=== PATIENT | male | born 1990 | race Caucasian/White ===

== ENCOUNTER → 2018-10-10 13:37 | Outpatient (CLI) | payer OTHER, SELFPAY ==
--- NOTE | 2018-10-10 | DI.MRI.S_ITS ---
PROCEDURE: MR KNEE LT WO CON INDICATIONS: LEFT KNEE INJURY TECHNIQUE: Noncontrast sagittal PD fast spin echo and T2 fast spin echo with fat saturation, sagittal 3-D FLASH with fat saturation; coronal T1 spin echo and PD fast spin echo with fat saturation, and axial PD fast spin echo with fat saturation through the knee. COMPARISON: None. FINDINGS: Image quality: Excellent. Menisci: The medial and lateral menisci demonstrate normal morphology and internal signal. The meniscal root ligaments appear intact. Cruciate ligaments: High-grade partial versus complete rupture of the anterior cruciate ligament. The posterior cruciate ligament appears intact. Medial structures: The medial collateral ligament appears intact. The posterior oblique ligament, semimembranosus tendon insertions, oblique popliteal ligament, and meniscocapsular junction appear intact. Visualized portions of the pes anserinus tendons appear normal. No abnormal bursal fluid. Lateral structures: The lateral collateral ligament, long and short heads of the biceps femoris tendon appear intact. The popliteus tendon appears normal; the popliteofibular ligament appears intact. The posterosuperior and anteroinferior popliteomeniscal fascicles appear intact. The arcuate and fabellofibular ligaments appear intact, on either side of the lateral inferior geniculate artery. Iliotibial band appears normal. Anterior structures: The quadriceps and patellar tendons appear intact. Patellar alignment is normal. No femoral trochlear dysplasia or ventral trochlear prominence. No edema in the infrapatellar fat pad. Bones and cartilage: Severe marrow contusions along the mid lateral femoral condyle, posterolateral and posteromedial tibial plateau The cartilage of the medial and lateral femorotibial compartments, as well as the patellofemoral compartment, appears normal in thickness. Joint space: Small Issa's cyst measuring approximately 3.0 cm in the cephalocaudad dimension. Moderate joint effusion. No definite loose bodies identified. IMPRESSION: Severe marrow contusions involving the lateral femoral condyle, posterolateral and posteromedial tibial plateau in keeping with pivot shift mechanism of injury. High-grade partial versus complete rupture of the anterior cruciate ligament. Issa's cyst. Moderate joint effusion Dictated by: Candido Ornelas M.D. on 10/10/2018 at 16:26 Approved by: Candido Ornelas M.D. on 10/10/2018 at 16:34
== END ==
DX: S80.02XA Contusion of left knee, initial encounter (principal); S83.512A Sprain of anterior cruciate ligament of left knee, initial encounter; M71.22 Synovial cyst of popliteal space [Baker], left knee; M25.462 Effusion, left knee
CPT/HCPCS: 73721

== ENCOUNTER 2024-10-29 13:09 | Emergency (ER) | payer OTHER, SELFPAY ==
[2024-10-29 13:12] VITALS: BP 145/84; PULSE 62; RESP 20; TEMP 36.6; O2SAT 100; BMI 30.4
--- NOTE | 2024-10-29 13:38 | ED.EYEPROB ---
HPI - Eye Problem <Rubi Hoffmann PA-C - Last Filed: 10/29/24 14:42> General Chief complaint: Eye Problems Stated complaint: R eyelid swelling Time Seen by Provider: 10/29/24 13:38 Mode of arrival: Ambulatory History of Present Illness HPI Narrative: Mr. Tineo is a very pleasant 34-year-old male with no reported past medical history who presents to emergency department for right upper eyelid redness and swelling since yesterday. Patient denies any trauma to the eye. Reports that around noon yesterday he noticed his right upper eyelid started to get red and a little bit swollen, and he has some irritation when he blinks his eye. States that he had a stye in the past but this seems different. He called the [place] triage line that prompted him to come to the emergency department. Denies any drainage to the eye, flu-like symptoms, fevers, chills, pain with eye movement, visual disturbance, blurry vision, spot specks or flashing lights. He attempted to use a warm compress but this did not help. He does not wear contact lenses but does wear glasses. No suspicion for foreign body, no welding. Related Data Previous Rx's Medication Instructions Recorded amoxicillin 875 mg-potassium 1 tab PO BID 5 days #10 tabs 10/29/24 clavulanate 125 mg tablet erythromycin 5 mg/gram (0.5 %) eye 0.5 inch EYE-RIGHT QID 7 days #3.5 10/29/24 ointment grams Allergies Allergy/AdvReac Type Severity Reaction Status Date / Time No Known Drug Allergies Allergy Verified 10/29/24 14:03 Review of Systems <Rubi Hoffmann PA-C - Last Filed: 10/29/24 14:42> Review of Systems ROS Unobtainable: All systems reviewed & are unremarkable except as noted in HPI and below Patient History <Rubi Hoffmann PA-C - Last Filed: 10/29/24 14:42> Social History Smoking Status: Never smoker Smoking Status: Never smoker Exam <Rubi Hoffmann PA-C - Last Filed: 10/29/24 14:42> Narrative Exam Narrative: GENERAL: 34 year old patient appears stated age. Well-developed patient, in no acute distress. HEAD: Atraumatic. Normocephalic. EYES: Right upper eyelid erythematous and edematous. Upper eyelid was everted revealing no internal stye or foreign body. PERRL. Extraocular motions intact. No scleral icterus. No injection or drainage. No conjunctivitis. No drainage. Gross vision intact. Fluorescein exam reveals no fluorescein uptake, negative Clementina sign. ENT: Nose without bleeding, purulent drainage. Throat without erythema, tonsillar hypertrophy or exudate. Airway patent. NECK: Trachea midline. Cervical ROM intact. CARDIOVASCULAR: Regular rate RESPIRATORY: ?Nonlabored respirations. ?Speaking in clear, full sentences. NEURO: AOx3. ?Clear speech. ?Moves all 4 extremities appropriately. SKIN: No rash or erythema of visible areas Initial Vital Signs Initial Vital Signs: Vital Signs Temperature 98 F 10/29/24 13:12 Pulse Rate 62 10/29/24 13:12 Respiratory Rate 20 10/29/24 13:12 Blood Pressure 145/84 H 10/29/24 13:12 Pulse Oximetry 100 10/29/24 13:12 Oxygen Delivery Method Room Air 10/29/24 13:12 <Taylor Miller MD - Last Filed: 10/29/24 18:57> Initial Vital Signs Initial Vital Signs: Vital Signs Temperature 98 F 10/29/24 13:12 Pulse Rate 62 10/29/24 13:12 Respiratory Rate 20 10/29/24 13:12 Blood Pressure 145/84 H 10/29/24 13:12 Pulse Oximetry 100 10/29/24 13:12 Oxygen Delivery Method Room Air 10/29/24 13:12 Course <Rubi Hoffmann PA-C - Last Filed: 10/29/24 14:42> Orders Ordered: Discontinued Medications Erythromycin (Erythromycin Ophth 1 Gm Oint) 1 applic EYE-RIGHT NOW ONE Stop: 10/29/24 14:14 Last Admin: 10/29/24 14:23 Dose: 1 applic Documented By: ÁNGLEA Fluorescein Sodium (Fluorescein 1 Mg Strip) 1 mg EYE-RIGHT NOW ONE Stop: 10/29/24 13:51 Last Admin: 10/29/24 14:04 Dose: 1 mg Documented By: KENDALL Proparacaine HCl (Proparacaine 0.5% Ophth Venus) 1 drops EYE-RIGHT NOW ONE Stop: 10/29/24 13:52 Last Admin: 10/29/24 14:03 Dose: 1 drop Documented By: KENDALL Vital Signs Vital signs: Vital Signs - 8 hr 10/29/24 13:12 10/29/24 14:25 Temperature 98 F Pulse Rate 62 63 Respiratory Rate 20 16 Blood Pressure 145/84 H 132/78 Pulse Oximetry 100 97 Oxygen Delivery Method Room Air <Taylor Miller MD - Last Filed: 10/29/24 18:57> Orders Ordered: Discontinued Medications Erythromycin (Erythromycin Ophth 1 Gm Oint) 1 applic EYE-RIGHT NOW ONE Stop: 10/29/24 14:14 Last Admin: 10/29/24 14:23 Dose: 1 applic Documented By: ÁNGELA Fluorescein Sodium (Fluorescein 1 Mg Strip) 1 mg EYE-RIGHT NOW ONE Stop: 10/29/24 13:51 Last Admin: 10/29/24 14:04 Dose: 1 mg Documented By: KENDALL Proparacaine HCl (Proparacaine 0.5% Ophth Venus) 1 drops EYE-RIGHT NOW ONE Stop: 10/29/24 13:52 Last Admin: 10/29/24 14:03 Dose: 1 drop Documented By: KENDALL Vital Signs Vital signs: Vital Signs - 8 hr 10/29/24 13:12 10/29/24 14:25 Temperature 98 F Pulse Rate 62 63 Respiratory Rate 20 16 Blood Pressure 145/84 H 132/78 Pulse Oximetry 100 97 Oxygen Delivery Method Room Air MDM - Eye Problem <Rubi Hoffmann PA-C - Last Filed: 10/29/24 14:42> MDM Narrative Medical decision making narrative: 34-year-old male with no reported past medical history who presents to emergency department for right upper eyelid redness and swelling since yesterday. Differential diagnosis includes but is not limited to blepharitis, preseptal cellulitis, internal hordeolum, conjunctivitis, chalazion, etc. On exam the patient is in no acute distress, nontoxic-appearing, all vital signs within normal limits, no visual disturbance and normal gross vision. Fluorescein eye exam reveals no corneal abrasion. Eversion of the upper eyelid reveals no internal hordeolum. Exam is consistent with blepharitis however given extent of erythema and edema on right upper eyelid, adamant abundance of caution we will also cover for potential early preseptal cellulitis. Patient has had no trauma to the skin of the eye therefore we will treat with Augmentin b.i.d. x5 days in addition to topical erythromycin ointment 4 times a day for at least the next week. Recommended warm compresses, washing upper eyelid with baby shampoo. Advised follow up with PCP and Ophthalmology, ED return precautions discussed. Patient verbalized understanding all information is agreeable with the plan. He is stable for discharge home. Discharge Plan Departure Patient Disposition: Home Clinical Impression: Blepharitis of right eye Qualifiers: Blepharitis type: unspecified type Eyelid: upper Qualified Code(s): H01.001 - Unspecified blepharitis right upper eyelid Instructions: DI for Blepharitis Activity Restrictions/Additional Instructions: Dear Mr. Tineo, Thank you for coming to the emergency department today. You were evaluated for right eyelid redness, swelling, irritation. Your diagnosis today is blepharitis however I am also treating you for a possible early periorbital skin infection. Please use the prescribed antibiotic ointment 4 times a day for the next week however you can continue using it for up to 1 month if needed. It is most important that you wash your eyelid twice daily with baby shampoo, and apply a warm compress to the upper eyelid for 15 minutes up to 4 times a day. Also complete the full 5 day course of oral antibiotics. Please follow up with your primary care doctor. You may also follow up with Ophthalmology here in [place] if needed, Dr. Lewis [phone]. Please follow up with your primary care doctor within the next 2-3 days for ER follow-up. (If you do not have a PCP you can call [phone]. ?to schedule an appointment with an [facility] Primary Care Provider) IF YOU DEVELOP ANY NEW OR WORSENING SYMPTOMS, RETURN TO THE ER! Please read the attached instructions, they highlight more specific treatments and interventions for you at home. Thank you for letting me participate in your care, Rubi Hoffmann PA-C Prescriptions: New erythromycin 5 mg/gram (0.5 %) ointment 0.5 inch EYE-RIGHT QID 7 Days Qty: 3.5 0RF Rx Instructions: Can use up to 1 month if symptoms persist amoxicillin-pot clavulanate 875-125 mg tablet 1 tab PO BID 5 Days Qty: 10 0RF Stand Alone Forms: Patient Portal/API/Survey ED Sign-out <Taylor Miller MD - Last Filed: 10/29/24 18:57> Cosign ED Attending Cosignature Attestation: I was immediately available in the department for consultation throughout this patient's visit. Taylor Miller MD
[2024-10-29] MEDS: PROPARACAINE 0.5% OPHTH SOL 1 DROPS EYE-RIGHT (14:03)
[2024-10-29] MEDS: FLUORESCEIN 1 MG STRIP EYE-RIGHT (14:04)
[2024-10-29] MEDS: ERYTHROMYCIN OPHTH 1 GM OINT 1 APPLIC EYE-RIGHT (14:23)
[2024-10-29 14:25] VITALS: BP 132/78; PULSE 63; RESP 16; O2SAT 97
== END 2024-10-29 14:46 | disposition home or self-care (01) ==
PROVIDERS: Emergency Provider Physician Assistant
DX: H01.001 Unspecified blepharitis right upper eyelid (principal)
CPT/HCPCS: 99282